=== PATIENT | male | born 1950 | race Caucasian/White ===

== ENCOUNTER 2022-08-14 20:06 | Inpatient (IN) | payer OTHER ==
[~2022-08-14] VITALS: Ht 172.7 cm; Wt 104.3 kg
[~2022-08-14 20:06] MED LIST: ALBU90OI INH; AMOCLA875 PO; CODGUAEL PO; LISI5 PO
[2022-08-14 21:37] LABS: Hematocrit 41.1 % (37.0-53.0); Hemoglobin 12.4 g/dL (13.5-17.5); Mean Corpuscular HGB 28.4 pg (26.0-34.0); Mean Corpuscular HGB Conc 30.2 g/dL (31.5-36.5); Mean Corpuscular Volume 94 fL (80-100); Mean Platelet Volume 12.1 fL (9.1-12.4); NRBC ABSOLUTE 0.08 K/mm3 (0.00-0.02); NRBC Auto 0.3 /100 WBC (0.0-0.2); Platelet Count 147 K/mm3 (150-400); RDW Coefficient Variation 19.8 % (11.7-14.2); RDW Standard Deviation 66.6 fL (35.1-46.3); Red Blood Cell Count 4.36 M/mm3 (4.30-5.90); White Blood Cell Count 27.54 K/mm3 (4.00-11.30)
[2022-08-14 22:39] LABS: Albumin, Blood 2.7 g/dL (3.4-5.0); Bun/Creatinine Ratio 23.1 (12.0-20.0); Calcium, Blood 9.1 mg/dL (8.5-10.1); Creatinine, Blood 2.42 mg/dL (0.60-1.20); Globulin, Blood 2.8 g/dL (2.2-4.0); Potassium, Blood 6.1 mmol/L (3.5-5.5); Total Protein, Blood 5.5 g/dL (6.4-8.2)
[2022-08-14 22:41] LABS: Bicarbonate Venous 8.2 mmol/L (24.0-30.0); PCO2 Venous 29.2 mmHg (38-42); pH Blood Venous 6.99 (7.34-7.37)
[2022-08-14 22:42] LABS: Base Excess Venous -24.5 mmol/L; PO2 Venous 71.9 mmHg (38-42)
[2022-08-14 22:50] LABS: Influenza A, PCR NEGATIVE (NEGATIVE); Influenza B, PCR NEGATIVE (NEGATIVE); Resp Syncytial Virus, PCR NEGATIVE (NEGATIVE); SARS-Cov-2 (COVID-19) PCR, MMC NEGATIVE (NEGATIVE)
[2022-08-14 22:50] LABS: BAND PERCENT MAN 28 % (0-8); BASOPHILS PERCENT MAN 0 % (0-2); EOSINOPHILS PERCENT MAN 0 % (0-6); LYMPHOCYTES PERCENT MAN 4 % (21-46); METAMYELOCYTE ABSOLUTE MAN 1.65 K/mm3 (0.00-0.00); METAMYELOCYTE PERCENT MAN 6 % (0-0); MONOCYTES ABSOLUTE MAN 3.58 K/mm3 (0.16-1.47); MONOCYTES PERCENT MAN 13 % (4-13); MYELOCYTE ABSOLUTE MAN 0.55 K/mm3 (0.00-0.00); MYELOCYTE PERCENT MAN 2 % (0-0); NEUTROPHILS ABSOLUTE MAN 20.65 K/mm3 (1.96-9.15); SEG NEUTROPHILS PERCENT MAN 47 % (41-73); TOTAL CELLS COUNTED 100
[2022-08-14 23:12] LABS: Magnesium, Blood 2.5 mg/dL (1.6-2.4)
[2022-08-15 01:47] LABS: Source, Urine Foley catheter
[2022-08-15 01:50] LABS: Blood, Urine Neg (Neg); Glucose Qualitative, Urine 3+ (Neg); Ketones, Urine 1+ (Neg); Leukocyte Esterase, Urine 1+ (Neg); Nitrite, Urine Pos (Neg); Protein, Urine 2+ (Neg); Urobilinogen, Urine 3+ (Normal)
[2022-08-15 02:50] LABS: Appearance, Urine Hazy (Clear); Bilirubin, Urine 2+ (Neg); Color, Urine Orange (P-Yellow)
[2022-08-15 02:53] LABS: Bacteria Many /hpf; Granular Casts 0-2 /lpf (0); Red Blood Cells, Urine 0-2 /hpf (0-2); Squamous Epithelial Cells Rare /hpf (Few); White Blood Cells, Urine 0-2 /hpf (0-5)
[2022-08-15 03:28] LABS: Calcium, Blood 8.3 mg/dL (8.5-10.1); Creatinine, Blood 2.95 mg/dL (0.60-1.20); Potassium, Blood 7.2 mmol/L (3.5-5.5)
[2022-08-15 05:41] LABS: Base Excess Venous -21.6 mmol/L; Bicarbonate Venous 9.5 mmol/L (24.0-30.0); PCO2 Venous 34.9 mmHg (38-42)
[2022-08-15 05:42] LABS: pH Blood Venous 7.03 (7.34-7.37)
[2022-08-15 05:43] LABS: Creatine Kinase MB 7.2 ng/mL (0.0-3.6); Creatine Kinase MB Index 1.8 (0.0-4.0)
[2022-08-15 05:49] LABS: Hematocrit 35.1 % (37.0-53.0); Hemoglobin 10.5 g/dL (13.5-17.5); Mean Corpuscular HGB 29.1 pg (26.0-34.0); Mean Corpuscular HGB Conc 29.9 g/dL (31.5-36.5); Mean Corpuscular Volume 97 fL (80-100); Mean Platelet Volume 11.9 fL (9.1-12.4); NRBC ABSOLUTE 0.22 K/mm3 (0.00-0.02); Platelet Count 114 K/mm3 (150-400); RDW Coefficient Variation 19.2 % (11.7-14.2); RDW Standard Deviation 67.5 fL (35.1-46.3); Red Blood Cell Count 3.61 M/mm3 (4.30-5.90); White Blood Cell Count 22.78 K/mm3 (4.00-11.30)
[2022-08-15 07:09] LABS: BAND PERCENT MAN 39 % (0-8); BASOPHILS PERCENT MAN 0 % (0-2); EOSINOPHILS PERCENT MAN 0 % (0-6); LYMPHOCYTES ABSOLUTE MAN 0.45 K/mm3 (0.84-5.20); LYMPHOCYTES PERCENT MAN 2 % (21-46); METAMYELOCYTE ABSOLUTE MAN 2.05 K/mm3 (0.00-0.00); METAMYELOCYTE PERCENT MAN 9 % (0-0); MONOCYTES ABSOLUTE MAN 2.05 K/mm3 (0.16-1.47); MONOCYTES PERCENT MAN 9 % (4-13); MYELOCYTE ABSOLUTE MAN 0.68 K/mm3 (0.00-0.00); MYELOCYTE PERCENT MAN 3 % (0-0); NEUTROPHILS ABSOLUTE MAN 17.54 K/mm3 (1.96-9.15); SEG NEUTROPHILS PERCENT MAN 38 % (41-73); TOTAL CELLS COUNTED 100
[2022-08-15 07:30] LABS: PCO2 Arterial 32.1 mmHg (35-45); PO2 Arterial 332 mmHg (80-100); pH Blood Arterial 7.09 (7.35-7.45)
[2022-08-15 08:20] LABS: Beta-hydroxybutyrate 8.3 mg/dL (0.2-2.8)
[2022-08-15 08:22] LABS: Bun/Creatinine Ratio 21.5 (12.0-20.0); Calcium, Blood 7.1 mg/dL (8.5-10.1); Creatinine, Blood 3.07 mg/dL (0.60-1.20); Potassium, Blood 7.7 mmol/L (3.5-5.5)
[2022-08-15 09:04] LABS: PCO2 Arterial 40.2 mmHg (35-45); PO2 Arterial 58.4 mmHg (80-100); pH Blood Arterial 7.07 (7.35-7.45)
[2022-08-15 09:18] LABS: PCO2 Arterial 97.9 mmHg (35-45); PO2 Arterial 62.2 mmHg (80-100); pH Blood Arterial 7.12 (7.35-7.45)
[2022-08-15 09:37] LABS: PCO2 Arterial 62.4 mmHg (35-45); PO2 Arterial 74.1 mmHg (80-100)
[2022-08-15 09:43] LABS: Hematocrit 34.2 % (37.0-53.0); Mean Corpuscular HGB 28.4 pg (26.0-34.0); Mean Corpuscular HGB Conc 29.2 g/dL (31.5-36.5); Mean Corpuscular Volume 97 fL (80-100); Mean Platelet Volume 12.5 fL (9.1-12.4); NRBC ABSOLUTE 0.39 K/mm3 (0.00-0.02); NRBC Auto 1.6 /100 WBC (0.0-0.2); Platelet Count 123 K/mm3 (150-400); RDW Coefficient Variation 19.6 % (11.7-14.2); RDW Standard Deviation 67.4 fL (35.1-46.3); Red Blood Cell Count 3.52 M/mm3 (4.30-5.90); White Blood Cell Count 24.52 K/mm3 (4.00-11.30)
[2022-08-15 09:51] LABS: International Normalized Ratio 2.49; Prothrombin Time Results 24.6 Sec (9.7-11.5)
[2022-08-15 09:56] LABS: Magnesium, Blood 3.1 mg/dL (1.6-2.4)
--- NOTE | 2022-08-15 10:05 | NUR ---
SUMMARY BSR AT 0700 ALL PRESSORS WERE STOPPED DUE TO BP RECOVERING. PT HAD A-LINE TO L FEMORAL WITH GOOD WAVE FORM. SPO2 NOT READING WELL. PT WAS DISORIENTED AND CONSTANTLY PULLING AT LINES. DR. EDUARDO CALLED QUICKLY AND TO BEDSIDE BY 0730 AND STAT ABG WAS DONE. L[facility] WAS RESTARTED FOR DROPPING BP. DR. FUENTES UPDATED HE ARRIVED AND WAS QUICKLY AT BEDSIDE WITH NEW ORDERS WELL. DR. FUENTES CONSULTED NEPHROLOGY AND PLACED A DIALYSIS CATH. DURING TRYING TO CONFIRM DIALYSIS CATH PLACEMENT PT CODED WITH ASYSTOLE ON THE MONITOR, SEE CODE BLUE FLOWSHEET. PRIOR TO CODE, NOTED PT HAD DARK PURPLE RLE WITH SOME BLISTERS AND 3+ EDEMA. STATES IT LOOKS WORSE THAN IT HAD AND PT HAD BEEN FALLING AT HOME. OUTLINED WITH SKIN MARKER AND SHOWN TO DR. EDUARDO AND DR. FUENTES.
[2022-08-15 10:06] LABS: BAND PERCENT MAN 31 % (0-8); BASOPHILS PERCENT MAN 0 % (0-2); EOSINOPHILS PERCENT MAN 0 % (0-6); LYMPHOCYTES ABSOLUTE MAN 0.98 K/mm3 (0.84-5.20); LYMPHOCYTES PERCENT MAN 4 % (21-46); METAMYELOCYTE ABSOLUTE MAN 2.69 K/mm3 (0.00-0.00); METAMYELOCYTE PERCENT MAN 11 % (0-0); MONOCYTES PERCENT MAN 9 % (4-13); MYELOCYTE ABSOLUTE MAN 0.73 K/mm3 (0.00-0.00); MYELOCYTE PERCENT MAN 3 % (0-0); NEUTROPHILS ABSOLUTE MAN 17.89 K/mm3 (1.96-9.15); SEG NEUTROPHILS PERCENT MAN 42 % (41-73); TOTAL CELLS COUNTED 100
[2022-08-15 10:12] LABS: Anion Gap 21 mmol/L (6-16); Blood Urea Nitrogen 64 mg/dL (8-24); Bun/Creatinine Ratio 20.8 (12.0-20.0); CO2, Blood 14 mmol/L (21-32); Calcium, Blood 8.7 mg/dL (8.5-10.1); Chloride, Blood 102 mmol/L (98-108); Creatinine, Blood 3.07 mg/dL (0.60-1.20); Glomerular Filtration Rate 21 (60-); Glucose, Blood 84 mg/dL (70-99); Potassium, Blood 8.2 mmol/L (3.5-5.5); Sodium, Blood 137 mmol/L (136-145)
[2022-08-15 10:15] LABS: Phosphorus, Blood >18.0 mg/dL (2.5-4.9)
--- NOTE | 2022-08-15 10:35 | NUR ---
Called to [facility] for support for Vimal's , Sarah, and her friend, Shell. Present at the bedside with during code and when TOD was called per MD. Emotional support given. Allowed family space to say their goodbyes and took them to the ICU waiting room. Sarah called Vimal's dtr Jasmine and grandson in [place] and she also contacted her granson Kevin in [place]. Offered condolences and support. Provided list of mortuaries to Sarah. Chaplain Hensley currently visiting with Sarah and Shell. Will continue to provide support prn.
--- NOTE | 2022-08-15 11:00 | NUR ---
Shea meeting with chaplain Hensley. Vimal's rings given to Sarah.
--- NOTE | 2022-08-15 11:09 | NUR ---
Call Back- Pt . Spoke with pt's spouse Sarah. Friend Jasmine was present to provide support. Eventually Jasmine's arrived with the intent to drive Sarah home. Sarah provided space to reminisce about her and the last 6 and 1/2 years together. Sarah was able to frame the in a positive light, noting she was glad he didn't suffer. She emoted appropriately utilizing tears and vocal grief. Zhou identifies Jasmine and her temple as support systems. She chose [facility] for body retrieval. Audible supplication provided before stepping out. Notified RN of the decision.
== END 2022-08-15 12:46 | DRG 871 ==
LOC: ER 20:06 → ICUW 08-15 01:05
PROVIDERS: Internal Medicine Critical Care Medicine; Student in an Organized Health Care Education/Training Program; ADMIT Internal Medicine
PROC: 3E03329 Introduction of Other Anti-infective into Peripheral Vein, Percutaneous Approach (ICD-10-PCS; principal; 2022-08-15)
PROC: 3E033XZ Introduction of Vasopressor into Peripheral Vein, Percutaneous Approach (ICD-10-PCS; 2022-08-15)
PROC: 04HY32Z Insertion of Monitoring Device into Lower Artery, Percutaneous Approach (ICD-10-PCS; 2022-08-15)
PROC: 4A133B1 Monitoring of Arterial Pressure, Peripheral, Percutaneous Approach (ICD-10-PCS; 2022-08-15)
PROC: 4A133J1 Monitoring of Arterial Pulse, Peripheral, Percutaneous Approach (ICD-10-PCS; 2022-08-15)
PROC: 5A12012 Performance of Cardiac Output, Single, Manual (ICD-10-PCS; 2022-08-15)
PROC: 0BH18EZ Insertion of Endotracheal Airway into Trachea, Via Natural or Artificial Opening Endoscopic (ICD-10-PCS; 2022-08-15)
PROC: 02HV33Z Insertion of Infusion Device into Superior Vena Cava, Percutaneous Approach (ICD-10-PCS; 2022-08-15)
PROC: 5A1935Z Respiratory Ventilation, Less than 24 Consecutive Hours (ICD-10-PCS; 2022-08-15)
DX: A41.9 Sepsis, unspecified organism (principal); G93.41 Metabolic encephalopathy; J18.9 Pneumonia, unspecified organism; Z20.822 Contact with and (suspected) exposure to COVID-19; R65.21 Severe sepsis with septic shock; Z51.5 Encounter for palliative care; Z78.1 Physical restraint status; Z66 Do not resuscitate; K72.00 Acute and subacute hepatic failure without coma; J96.01 Acute respiratory failure with hypoxia; N17.9 Acute kidney failure, unspecified; C85.96 Non-Hodgkin lymphoma, unspecified, intrapelvic lymph nodes; J44.0 Chronic obstructive pulmonary disease with (acute) lower respiratory infection; E11.9 Type 2 diabetes mellitus without complications; G47.33 Obstructive sleep apnea (adult) (pediatric); E87.5 Hyperkalemia; I10 Essential (primary) hypertension; E78.5 Hyperlipidemia, unspecified; I46.9 Cardiac arrest, cause unspecified; K74.60 Unspecified cirrhosis of liver; Z87.891 Personal history of nicotine dependence
CPT/HCPCS: 0241U; 36415; 36556; 36620; 51703; 71045; 71046; 74176; 80048; 80053; 81001; 82010; 82330; 82435; 82550; 82553; 82803; 82947; 83605; 83690; 83735; 83880; 84100; 84132; 84145; 84295; 84484; 85025; 85610; 85730; 87086; 92950; 93005; 93010; 93970; 94644; 94660; 94664; 96365; 96368; 96375; 99285-25; C1751; C1752; J0171; J0282; J0461; J0610; J0692; J1720; J1815; J1940; J2250; J2543; J3010; J3370; J3475; J7030; J7040; J7050; J7060; J7799; P9047